=== PATIENT | female | born 1935 | race Caucasian/White ===

== ENCOUNTER 2020-07-29 15:16 | Inpatient (IN) | payer MEDICARE, OTHER ==
[~2020-07-29] VITALS: Ht 167.6 cm; Wt 80.0 kg
[2020-07-29] MEDS ORDERED: normal saline 1000ml 1,000 ML IV ONE (15:35)
[2020-07-29 15:45] LABS: BASOPHILS % (AUTO) 0.7 % (0-1); EOSINOPHILS # (AUTO) 0.2 X10'3 (0-0.9); EOSINOPHILS % (AUTO) 2.7 % (0-6); HEMATOCRIT 42.2 % (35.0-45.0); HEMOGLOBIN 14.3 g/dl (12.0-16.0); LYMPHOCYTES # (AUTO) 1.4 X10'3 (1.1-4.8); LYMPHOCYTES % (AUTO) 24.3 % (21-51); MEAN CORPUSCULAR HEMOGLOBIN 32.8 PG (27.0-31.0); MEAN CORPUSCULAR HGB CONC 33.9 g/dL (33.0-36.5); MEAN CORPUSCULAR VOLUME 96.9 FL (78-98); MEAN PLATELET VOLUME 8.8 FL (7.4-10.4); MONOCYTES # (AUTO) 0.4 X10'3 (0-0.9); NEUTROPHILS # (AUTO) 3.9 X10'3 (1.8-7.7); NEUTROPHILS % (AUTO) 65.3 % (42-75); PLATELET COUNT 194 X10'3 (140-440); RED BLOOD COUNT 4.36 X10'6 (4.20-5.60); RED CELL DISTRIBUTION WIDTH 13.1 % (11.5-14.5); WHITE BLOOD COUNT 5.9 X10'3 (4.5-11.0)
[2020-07-29 16:01] LABS: PARTIAL THROMBOPLASTIN TIME 30 SECONDS (22-32)
[2020-07-29 16:02] LABS: ALANINE AMINOTRANSFERASE 15 U/L (12-78); ALBUMIN 3.6 G/DL (3.4-5.0); ALKALINE PHOSPHATASE 84 IU/L (46-116); ANION GAP 5 (8-16); ASPARTATE AMINO TRANSFERASE 20 U/L (10-37); BILIRUBIN,TOTAL 0.5 MG/DL (0.1-1.0); BLOOD UREA NITROGEN 14 MG/DL (7-18); BUN/CREATININE RATIO 15.4 (6.6-38.0); CALCIUM 9.2 MG/DL (8.5-10.1); CHLORIDE 105 MMOL/L (99-107); CREATININE 0.91 MG/DL (0.40-0.90); GLUCOSE 103 MG/DL (70-104); POTASSIUM 3.9 MMOL/L (3.5-5.1); SODIUM 140 MMOL/L (135-145); TOTAL CARBON DIOXIDE 29.8 MMOL/L (24-32); TOTAL PROTEIN 7.3 G/DL (6.4-8.2); eGFR 59 ML/MIN
[2020-07-29 16:10] LABS: MAGNESIUM 2.1 MG/DL (1.5-2.4)
--- NOTE | 2020-07-29 16:31 | NUR ---
[facility] CALLED. PT ON BACK PORCH WITH PUTTING TOGETHER A SHELF, GOT DIZZY, SAID OH GOD NOT GOING TO MAKE IT. TRYING TO GET TO HER CHAIR, HE PUT HER ON THE COUCH AND SHE WAS OUT, NON RESPONSE, BREATHING FAST, 10MINUTES, THEN OPENED EYES. TALKING TO 911, PT STARTED MOVING AND TRYING TO LAY FLAT. PT EATING AND DRINKING WELL, UNSURE NEW MEDS. DR. ROA PROBLEM IN THE BACK OF THE HEART. SAW DR. FANG 4 DAYS AGO. PT NOT IN PAIN.
[2020-07-29 16:42] LABS: CLARITY,URINE CLEAR (Clear); COLOR,URINE YELLOW (Yellow); GLUCOSE, URINE NEGATIVE (Neg); KETONES,URINE NEGATIVE (Neg); LEUKOCYTE ESTERASE ,URINE NEGATIVE (Neg); NITRITES, URINE NEGATIVE (Neg); OCCULT BLOOD,URINE TRACE-INTACT (Neg); PROTEIN,URINE NEGATIVE (Neg); UROBILINOGEN,URINE 0.2 E.U/dL (0.2-1.0)
--- NOTE | 2020-07-29 16:43 | NUR ---
PT HAS PINK BOOK WITH LIST OF MEDICATIONS.
[2020-07-29 16:44] LABS: UA COLLECTION TYPE STRAIGHT CATH
[2020-07-29 16:48] LABS: BACTERIA,URINE FEW /HPF (Neg); MUCUS STRANDS FEW /LPF (Neg); RBC,URINE 0-2 /HPF (0-2); SQUAMOUS EPITHELIAL CELL,UR FEW /LPF (FEW); WBC,URINE 0-4 /HPF (0-4)
--- NOTE | 2020-07-29 16:52 | NUR ---
DR. ALEXANDER HEART
[2020-07-29] MEDS ORDERED: HYDR25TA4 PO (17:02)
[2020-07-29] MEDS ORDERED: LISI-604 PO (17:02)
[2020-07-29] MEDS ORDERED: CEPH500C5 (17:02)
[2020-07-29] MEDS ORDERED: ATEN100T PO (17:02)
[2020-07-29] MEDS ORDERED: POTA8TAB3 PO (17:15)
[2020-07-29] MEDS ORDERED: CETI-90 PO (17:15)
[2020-07-29] MEDS ORDERED: TRIA10.8 BOTHNARES (17:15)
--- NOTE | 2020-07-29 18:01 | NUR ---
LEATHA CALLED FOR UPDATE. PT IS SPENDING THE NIGHT, WAITING ON IN HOUSE DR. TAVAREZ KNOWS DOG NAME PEANUT.
[2020-07-29] MEDS ORDERED: adenosine 3mg/ml 2ml vial IV ONE ×2 (18:20)
[2020-07-29] MEDS ORDERED: normal saline 1000ML IV soln IVB ONE (18:20)
[2020-07-29] MEDS ORDERED: iohexol 350MG/ML 100ml bottle IV ONE (18:22)
[2020-07-29 18:33] LABS: LIPASE 141 U/L (73-393)
--- NOTE | 2020-07-29 18:43 | NUR ---
TO CT VIA [facility]
[2020-07-29] MEDS ORDERED: acetaminophen 650mg rectal suppository RC PRN (19:05)
[2020-07-29] MEDS ORDERED: ondansetron/PF 4mg/2ml inj IV PRN (19:05)
[2020-07-29] MEDS ORDERED: magnesium 2GM in 50ml NS 50 ML IV PRN (19:05)
[2020-07-29] MEDS ORDERED: magnesium 4gm in 100ml NS 100 ML IV PRN (19:05)
[2020-07-29] MEDS ORDERED: mag hydrox/Alum hydrox/simeth 30ml oral suspension PO PRN (19:05)
[2020-07-29] MEDS ORDERED: magnesium hydroxide 30ml (MOM) UD suspension PO PRN (19:05)
[2020-07-29] MEDS ORDERED: diphenhydrAMINE 50 mg/ml inj IV PRN (19:05)
[2020-07-29] MEDS ORDERED: potassium Cl 40MEQ/1/2NS 520ml 520 ML IV PRN ×2 (19:05)
[2020-07-29] MEDS ORDERED: acetaminophen 325mg tablet PO PRN ×2 (19:05)
[2020-07-29] MEDS ORDERED: diphenhydrAMINE 25mg capsule PO PRN (19:05)
[2020-07-29] MEDS ORDERED: potassium Cl 20 mEq SR tablet PO PRN ×2 (19:05)
[2020-07-29] MEDS ORDERED: magnesium Cl slow-release 64mg tablet PO PRN (19:05)
[2020-07-29] MEDS: K and/or MAG REPLACEMENT MC SCH (19:32)
[2020-07-29] MEDS: atorvastatin 10mg tablet PO SCH (19:32)
[2020-07-29] MEDS: heparin, porcine 5000 units/ml vial SQ SCH (19:32)
[2020-07-29] MEDS: normal saline 1000ml 1,000 ML IV SCH (19:32)
[2020-07-29 19:36] LABS: CHOL/HDL RATIO 4.4 (0.00-4.99); CHOLESTEROL 225 MG/DL (0-200); HDL CHOLESTEROL 51 MG/DL (35-60); HEMOGLOBIN A1C 5.4 % (4.5-6.2); LDL CHOLESTEROL 146 MG/DL (50-100); TRIGLYCERIDES 142 MG/DL (20-135)
--- NOTE | 2020-07-29 19:54 | NUR ---
SON [phone] LEFT MESSAGE OF PTS NEW ROOM NUMBER
[2020-07-29 20:00] VITALS: BP_SYST 173; BP_SYST 175; BP_SYST 177; BP_DIAS 68; BP_DIAS 69
[2020-07-29 20:45] VITALS: BP 173/69
[2020-07-29 22:00] VITALS: BP 164/64
[2020-07-29 22:15] VITALS: BP 170/60
--- NOTE | 2020-07-29 22:22 | NUR ---
Paged Dr. Lea. PAGER ID: [phone] MESSAGE: Pt Nadya Carreno 85 F (new admit 2025S) Dx : Syncope Hx : HTN has high blood pressure SBP in 170s (173/69. 170/60; 62 bpm. Pt takes Atenolol and Lisinopril@ home. Do you have an order to lower her BP? Thanks! Beverly perez [phone].
[2020-07-29] MEDS ORDERED: hydrALAZINE 20mg/ml inj. IV PRN (22:25)
[2020-07-30 00:26] VITALS: BP 130/50
[2020-07-30 02:00] VITALS: BP 141/54
[2020-07-30 03:40] LABS: BASOPHILS % (AUTO) 0.6 % (0-1); EOSINOPHILS # (AUTO) 0.1 X10'3 (0-0.9); EOSINOPHILS % (AUTO) 1.2 % (0-6); HEMATOCRIT 41.2 % (35.0-45.0); LYMPHOCYTES # (AUTO) 1.2 X10'3 (1.1-4.8); MEAN CORPUSCULAR HEMOGLOBIN 32.7 PG (27.0-31.0); MEAN CORPUSCULAR HGB CONC 34.1 g/dL (33.0-36.5); MEAN PLATELET VOLUME 9.1 FL (7.4-10.4); MONOCYTES # (AUTO) 0.6 X10'3 (0-0.9); MONOCYTES % (AUTO) 8.7 % (2-12); NEUTROPHILS # (AUTO) 5.2 X10'3 (1.8-7.7); NEUTROPHILS % (AUTO) 72.5 % (42-75); PLATELET COUNT 195 X10'3 (140-440); RED BLOOD COUNT 4.29 X10'6 (4.20-5.60); RED CELL DISTRIBUTION WIDTH 13.3 % (11.5-14.5); WHITE BLOOD COUNT 7.2 X10'3 (4.5-11.0)
[2020-07-30 03:51] LABS: ALANINE AMINOTRANSFERASE 16 U/L (12-78); ALBUMIN 3.1 G/DL (3.4-5.0); ALBUMIN/GLOBULIN RATIO 0.9 (1.1-1.5); ALKALINE PHOSPHATASE 81 IU/L (46-116); ANION GAP 9 (8-16); ASPARTATE AMINO TRANSFERASE 17 U/L (10-37); BILIRUBIN,TOTAL 0.5 MG/DL (0.1-1.0); BLOOD UREA NITROGEN 15 MG/DL (7-18); BUN/CREATININE RATIO 17.2 (6.6-38.0); CALCIUM 8.8 MG/DL (8.5-10.1); CHLORIDE 110 MMOL/L (99-107); CREATININE 0.87 MG/DL (0.40-0.90); GLUCOSE 106 MG/DL (70-104); POTASSIUM 3.5 MMOL/L (3.5-5.1); SODIUM 146 MMOL/L (135-145); TOTAL CARBON DIOXIDE 27.5 MMOL/L (24-32); TOTAL PROTEIN 6.7 G/DL (6.4-8.2); eGFR 62 ML/MIN
[2020-07-30 03:55] LABS: CHOL/HDL RATIO 4.3 (0.00-4.99); CHOLESTEROL 207 MG/DL (0-200); HDL CHOLESTEROL 48 MG/DL (35-60); LDL CHOLESTEROL 133 MG/DL (50-100); MAGNESIUM 1.9 MG/DL (1.5-2.4); PHOSPHORUS 2.6 MG/DL (2.3-4.5); TRIGLYCERIDES 149 MG/DL (20-135)
[2020-07-30 06:00] VITALS: BP 149/67
--- NOTE | 2020-07-30 06:00 | NUR ---
Patient in room PCU 3016. I have received report from Beverly OWEN and had the opportunity to ask questions and assume patient care.
--- NOTE | 2020-07-30 06:08 | NUR ---
Problems reprioritized. Patient report given, questions answered & plan of care reviewed with LEXIE Montgomery.
--- NOTE | 2020-07-30 06:20 | NUR ---
Patient in room PCU 3016. I have received report from Beverly OWEN and had the opportunity to ask questions and assume patient care.
[2020-07-30 08:00] VITALS: BP_SYST 130; BP_SYST 150; BP_SYST 153; BP_DIAS 73; BP_DIAS 76
[2020-07-30] MEDS ORDERED: aspirin 325mg tablet, delayed-release (Ecotrin) PO SCH (08:00)
[2020-07-30] MEDS: K and/or MAG REPLACEMENT MC SCH (08:00)
[2020-07-30] MEDS: heparin, porcine 5000 units/ml vial SQ SCH (08:55)
[2020-07-30] MEDS: atorvastatin 10mg tablet PO SCH (08:55)
[2020-07-30] MEDS: normal saline 1000ml 1,000 ML IV SCH (09:05)
[2020-07-30 11:00] VITALS: BP 149/69
[2020-07-30 12:02] VITALS: BP_SYST 149
[2020-07-30] MEDS: lisinopril 5mg tablet PO SCH (12:02)
[2020-07-30] MEDS: atenolol 50mg tablet PO SCH ×2 (12:02→12:05)
[2020-07-30] MEDS ORDERED: ATOR10TA PO (13:44)
[2020-07-30] MEDS ORDERED: ASPI81TA52 PO (13:44)
[2020-07-30] MEDS ORDERED: LISI-600 PO (13:50)
[2020-07-30] MEDS ORDERED: METO-395 PO (13:50)
--- NOTE | 2020-07-30 15:30 | NUR ---
Pt DC'd home with . IV removed, canula intact. Tele-box removed and returned to tele-tech. Pt alert and oriented and vitals WNL upon DC. Per Dr. Thomas; Pt is stable for DC. DC paperwork printed out and gone over with Pt. Allowed Pt to ask questions concerning DC and then answered them. New prescriptions called into [facility] pharmacy in [place]. Pt stated she will make follow up appt with her PCP Dr. Mackenzie and utilization review rn Dr. Eid on Saturday. Pt's belongings gathered and sent with Pt. Pt wheeled down to lobby in wheelchair and left in private vehicle for home.
[2020-07-30] MEDS ORDERED: fluticasone nasal spray 16GM bottle NS SCH (21:00)
[2020-07-31] MEDS ORDERED: atenolol 50mg tablet PO SCH (08:00)
[2020-07-31] MEDS ORDERED: HYDROchlorothiazide 25mg tablet PO SCH (08:00)
--- NOTE | 2020-08-02 10:11 | NUR ---
CASE MANAGEMENT DISCHARGE FOLLOW UP: Spoke with pt via telephone. Pt reports that she is feeling "pretty good this morning" and that she is sleeping better and is not shaky. She denies any further episodes of syncope. She verbalizes understanding of s/sx requiring further evaluation/emergent assistance. Pt verbalizes understanding of new/current/stopped prescriptions, states taking new prescription medications per MD and has stopped taking atenolol and cetirizine per MD. She has also continued taking her current home medications as well as made the adjustments to taking the new dose of lisinopril. Pt states that she takes her BP once a day, upon inquiry, pt states that she checks her BP after taking BP medications. Advised pt that she should check BP before taking BP medications to prevent overmedicating in the event her BP is low. Advised that if her BP is low to hold medication and contact MD immediately for instructions, pt verbalizes understanding. Pt verbalizes compliance with MD discharge instructions. Pt verbalizes understanding of the importance in making/keeping follow-up appointments, however she has been unable to get a hold of either Dr. Mackenzie's or Dr. Eid's office for appts, will assist pt per her request. Pt states no further questions/concerns at this time. [address] Eid's office and requested that the phone the pt for a follow up appointment as well as notified them that MD would like her to have an event monitor. Was notified that pt had a 7-day event monitor in May, but that they will make a note in pt's chart of MD request. They will follow up with pt. [id number] Unable to get a hold of anyone in Dr. Mackenzie's office, voicemail is full, will attempt to call again this afternoon. Addendum: 08/02/20 at 1446 by Natacha Lemus RN [id number] Able to connect with Dr Mackenzie's office at this time. Requested that the call pt to set up a follow up appoint s/p discharge, per office staff they will contact pt to set up appointment.
== END 2020-07-30 15:24 | disposition home or self-care (01) | DRG 312 ==
LOC: ER 15:17 → ED HOLD 19:05 → EDBEDREQ 19:36 → PCU 3S 20:32
PROVIDERS: ADMIT Family Medicine; ATTEND Family Medicine
PROC: B3251ZZ Computerized Tomography (CT Scan) of Bilateral Common Carotid Arteries using Low Osmolar Contrast (ICD-10-PCS; principal; 2020-07-29)
PROC: B32G1ZZ Computerized Tomography (CT Scan) of Bilateral Vertebral Arteries using Low Osmolar Contrast (ICD-10-PCS; 2020-07-29)
PROC: B3281ZZ Computerized Tomography (CT Scan) of Bilateral Internal Carotid Arteries using Low Osmolar Contrast (ICD-10-PCS; 2020-07-29)
DX: R55 Syncope and collapse (principal); I10 Essential (primary) hypertension; I65.23 Occlusion and stenosis of bilateral carotid arteries; Z66 Do not resuscitate; R94.31 Abnormal electrocardiogram [ECG] [EKG]; Z79.899 Other long term (current) drug therapy; Z82.49 Family history of ischemic heart disease and other diseases of the circulatory system; Z87.891 Personal history of nicotine dependence; Z90.710 Acquired absence of both cervix and uterus; Z88.5 Allergy status to narcotic agent
CPT/HCPCS: 36415; 70450; 70496; 70498; 70551; 71045; 80053; 80061; 81001; 82948; 83036; 83690; 83735; 83880; 84100; 84443; 84484; 85025; 85610; 85651; 85730; 87081; 93005; 93308; 96372; 97110; 97161; 97530; 99285; G0378; J0360; J1644; J7030; Q9967

== ENCOUNTER 2024-09-06 06:05 | Emergency (ER) | payer MEDICARE, OTHER ==
[~2024-09-06] VITALS: Ht 167.6 cm; Wt 78.2 kg
[~2024-09-06 06:05] MED LIST: ATOR10TA PO; HYDR25TA4 PO; METO-395 PO; POTA8TAB69 PO; TRIA10.8 BOTHNARES
[2024-09-06 06:45] LABS: ALANINE AMINOTRANSFERASE 16 U/L (12-78); ALBUMIN 3.4 G/DL (3.4-5.0); ALBUMIN/GLOBULIN RATIO 0.9 (1.1-1.5); ALKALINE PHOSPHATASE 96 IU/L (46-116); ANION GAP 9 (8-16); ASPARTATE AMINO TRANSFERASE 26 U/L (10-37); BASOPHILS % (AUTO) 0.4 % (0-1); BILIRUBIN,TOTAL 0.8 MG/DL (0.1-1.0); BLOOD UREA NITROGEN 13 MG/DL (7-18); BUN/CREATININE RATIO 14.3 (10.0-20.0); CALCIUM 8.8 MG/DL (8.5-10.1); CHLORIDE 105 MMOL/L (99-107); CREATININE 0.91 MG/DL (0.40-0.90); EOSINOPHILS # (AUTO) 0.1 X10'3 (0-0.9); EOSINOPHILS % (AUTO) 1.4 % (0-6); GLUCOSE 115 MG/DL (70-104); HEMATOCRIT 38.1 % (35.0-45.0); LYMPHOCYTES % (AUTO) 11.6 % (21-51); MEAN CORPUSCULAR HEMOGLOBIN 32.9 PG (27.0-31.0); MEAN CORPUSCULAR HGB CONC 34.2 g/dL (33.0-36.5); MEAN CORPUSCULAR VOLUME 96.2 FL (78-98); MONOCYTES # (AUTO) 0.3 X10'3 (0-0.9); MONOCYTES % (AUTO) 4.2 % (2-12); NEUTROPHILS # (AUTO) 6.9 X10'3 (1.8-7.7); NEUTROPHILS % (AUTO) 82.4 % (42-75); PLATELET COUNT 194 X10'3 (140-440); POTASSIUM 3.9 MMOL/L (3.5-5.1); RED BLOOD COUNT 3.96 X10'6 (4.20-5.60); RED CELL DISTRIBUTION WIDTH 13.9 % (11.5-14.5); SODIUM 139 MMOL/L (135-145); TOTAL CARBON DIOXIDE 25.3 MMOL/L (24-32); TOTAL PROTEIN 7.3 G/DL (6.4-8.2); WHITE BLOOD COUNT 8.3 X10'3 (4.5-11.0); eCRCL 39 ML/MIN; eGFR 58 ML/MIN
[2024-09-06 06:54] LABS: LIPASE 50 U/L (16-77); PRO BRAIN NATRIURETIC PEPTIDE 1797 PG/ML (0-450)
[2024-09-06] MEDS ORDERED: iohexol 300mg/ml 100ml inj. ONE (07:41)
[2024-09-06] MEDS ORDERED: LISI20TA28 PO (09:20)
[2024-09-06] MEDS ORDERED: APIX5TAB3 PO (09:20)
[2024-09-06] MEDS ORDERED: METO-411 PO (09:20)
[2024-09-06] MEDS ORDERED: FURO20TA4 PO (09:20)
[2024-09-06] MEDS: famotidine 20mg tablet PO ONE (09:51)
[2024-09-06 11:27] LABS: BILIRUBIN,URINE NEGATIVE (Neg); CLARITY,URINE CLEAR (Clear); COLOR,URINE YELLOW (Yellow); GLUCOSE, URINE NEGATIVE (Neg); KETONES,URINE NEGATIVE (Neg); LEUKOCYTE ESTERASE ,URINE NEGATIVE (Neg); NITRITES, URINE NEGATIVE (Neg); OCCULT BLOOD,URINE SMALL (Neg); PROTEIN,URINE NEGATIVE (Neg); UROBILINOGEN,URINE 0.2 E.U/dL (0.2-1.0)
[2024-09-06 11:33] LABS: UA COLLECTION TYPE CLN CATCH MIDSTREAM
[2024-09-06 11:34] LABS: BACTERIA,URINE NONE SEEN /HPF (Neg); MUCUS STRANDS FEW /LPF (Neg); SQUAMOUS EPITHELIAL CELL,UR FEW /LPF (FEW); WBC,URINE 0-4 /HPF (0-4)
[2024-09-06] MEDS ORDERED: FAMO-129 PO (11:49)
[2024-09-06 12:18] VITALS: BP 124/74; PULSE 89; RESP 20; TEMP 99.8; O2SAT 94
== END 2024-09-06 12:26 | disposition home or self-care (01) ==
LOC: ER 06:05
DX: R10.11 Right upper quadrant pain (principal); R11.2 Nausea with vomiting, unspecified; Z88.8 Allergy status to other drugs, medicaments and biological substances; Z88.5 Allergy status to narcotic agent; Z90.49 Acquired absence of other specified parts of digestive tract; Z79.899 Other long term (current) drug therapy; Z20.822 Contact with and (suspected) exposure to COVID-19
CPT/HCPCS: 36415; 71045; 74177; 76700; 80053; 81001; 83605; 83690; 83880; 84484; 85025; 87040; 87502; 87503; 87811; 93005; 99285; Q9967